=== PATIENT | female | born 1965 | race Caucasian/White ===

== ENCOUNTER 2019-03-28 21:16 | Emergency (ER) | payer MEDICAID ==
[~2019-03-28] VITALS: Ht 167.6 cm; Wt 83.2 kg
[~2019-03-28 21:16] MED LIST: LITH300T16 PO; RES15C PO; SIMV5TAB58 PO; SYN0.025T PO; TOPI25CA6 PO
[2019-03-28 21:18] VITALS: BP 139/82
== END 2019-03-28 22:15 | disposition home or self-care (01) ==
LOC: ER 21:16
DX: S39.011A Strain of muscle, fascia and tendon of abdomen, initial encounter (principal); E78.00 Pure hypercholesterolemia, unspecified; Z90.710 Acquired absence of both cervix and uterus; Z79.899 Other long term (current) drug therapy; X58.XXXA Exposure to other specified factors, initial encounter; Y93.89 Activity, other specified; Y92.89 Other specified places as the place of occurrence of the external cause; Y99.9 Unspecified external cause status
CPT/HCPCS: 99281

== ENCOUNTER 2019-10-08 09:56 | Day surgery (SDC) | payer MEDICAID ==
[2019-10-03 16:14] LABS: BASOPHILS # (AUTO) 0.1 X10'3 (0-0.2); BASOPHILS % (AUTO) 0.7 % (0-1); EOSINOPHILS # (AUTO) 0.1 X10'3 (0-0.9); EOSINOPHILS % (AUTO) 1.1 % (0-6); LYMPHOCYTES % (AUTO) 24.4 % (21-51); MEAN CORPUSCULAR HEMOGLOBIN 30.8 PG (27.0-31.0); MEAN CORPUSCULAR HGB CONC 34.1 g/dL (33.0-36.5); MEAN CORPUSCULAR VOLUME 90.4 FL (78-98); MEAN PLATELET VOLUME 7.1 FL (7.4-10.4); MONOCYTES # (AUTO) 0.5 X10'3 (0-0.9); MONOCYTES % (AUTO) 5.9 % (2-12); NEUTROPHILS # (AUTO) 5.6 X10'3 (1.8-7.7); NEUTROPHILS % (AUTO) 67.9 % (42-75); PRE OP HEMATOCRIT 40.9 % (35.0-45.0); PRE OP HEMOGLOBIN 13.9 g/dL (12.0-16.0); PRE OP PLATELET COUNT 230 X10'3 (140-440); RED BLOOD COUNT 4.52 X10'6 (4.20-5.60); RED CELL DISTRIBUTION WIDTH 12.6 % (11.5-14.5)
[2019-10-03 16:31] LABS: ALBUMIN 4.1 G/DL (3.4-5.0); ALBUMIN/GLOBULIN RATIO 1.2 (1.1-1.5); ALKALINE PHOSPHATASE 108 IU/L (46-116); BLOOD UREA NITROGEN 12 MG/DL (7-18); BUN/CREATININE RATIO 10.8 (6.6-38.0); CALCIUM 9.7 MG/DL (8.5-10.1); CHLORIDE 108 MMOL/L (99-107); CREATININE 1.11 MG/DL (0.40-0.90); PRE OP ALT 31 U/L (30-65); PRE OP ANION GAP 7 (8-16); PRE OP AST 18 U/L (10-37); PRE OP BILIRUB, TOTAL 0.3 MG/DL (0.0-1.0); PRE OP GLUCOSE 102 MG/DL (70-104); PRE OP POTASSIUM 3.6 MMOL/L (3.4-5.1); PRE OP SODIUM 142 MMOL/L (135-145); TOTAL PROTEIN 7.6 G/DL (6.4-8.2); eGFR 51 ML/MIN
[2019-10-08] VITALS (11 sets, daily range): BP systolic 111–134; BP diastolic 54–80
[~2019-10-08] VITALS: Ht 167.6 cm; Wt 89.6 kg
[~2019-10-08 09:56] MED LIST changes: +CHOL10006 PO; +CYAN250014 PO; +ESTR1TAB19 PO; +IBUP-1985 PO; +LAMO100T PO; -LITH300T16 PO; +MAGN400T29 PO; +UBID50TA3 PO; +cefazolin/dext.iso 2gm/100ml 100 ML IV ONE; +famotidine 20mg tablet PO ONE; +ringers solution, lacted 1,000 ML IV SCH
[2019-10-08] MEDS ORDERED: ringers solution, lacted 1,000 ML IV SCH (11:17)
[2019-10-08] MEDS ORDERED: labetalol 20mg/4ml (5mg/ml) syringe IV PRN (11:20)
[2019-10-08] MEDS ORDERED: hydrALAZINE 20mg/ml inj. IV PRN (11:20)
[2019-10-08] MEDS ORDERED: morphine 2 MG/ML inj. syringe IV PRN (11:20)
[2019-10-08] MEDS ORDERED: morphine 4 MG/ML inj SYRINge IV PRN (11:20)
[2019-10-08] MEDS ORDERED: fentaNYL/PF 50MCG/1 ML 2ML syringe IV PRN ×2 (11:20)
[2019-10-08] MEDS ORDERED: ondansetron/PF 4mg/2ml inj IV PRN (11:20)
[2019-10-08] MEDS ORDERED: BUPIVAcaine/PF 2.5 mg/ml (0.25%) 30ml vial ONE (12:57)
[2019-10-08] MEDS ORDERED: LIDOcaine 1% 30ml preserv. free vial ONE (12:57)
[2019-10-08] MEDS ORDERED: midazolam 2 mg/2 ml injection ONE (13:16)
[2019-10-08] MEDS ORDERED: fentaNYL/PF 50MCG/1 ML 2ML syringe ONE (13:16)
[2019-10-08] MEDS ORDERED: propofol inj 20 ML IV ONE (13:23)
[2019-10-08] MEDS ORDERED: LIDOcaine 2% (20mg/ml) 5ml vial ONE (13:23)
[2019-10-08] MEDS ORDERED: rocuronium 10mg/ml inj IV ONE (13:25)
[2019-10-08] MEDS ORDERED: ondansetron/PF 4mg/2ml inj ONE (13:25)
[2019-10-08] MEDS ORDERED: dexamethasone sod phosphate 4mg/ml inj. ONE (13:25)
[2019-10-08] MEDS ORDERED: glycopyrrolate 0.2mg/ml inj ONE (13:27)
[2019-10-08] MEDS ORDERED: neostigmine methylsulfate 1 MG/ML 10ml vial ONE (13:27)
--- NOTE | 2019-10-08 14:37 | NUR ---
Received from OR via [facility] , accompanied by Anesthesiologist DR BOND and report given by Anesthesiolgist. PATIENT WAKING UP, DENIES PAIN, V/S WNL, NEUROVASCULAR CHECKS INTACT, BANDAIDS TO ABDOMEN LAP SITES WITH CDI. 20G PIV TO LEFT FA PATENT. Addendum: 10/08/19 at 1451 by Charity Iqbal RN Amended: Links added.
[2019-10-08] MEDS ORDERED: HYDROcodone/acetaminophen 5mg/325mg tablet PO PRN (14:50)
[2019-10-08] MEDS ORDERED: HYDROcodone/acetaminophen 10/325mg tab PO PRN (14:50)
--- NOTE | 2019-10-08 16:18 | NUR ---
([id number]) UP AND DRESSED. MOHINI PO FLUID AND SNACK. STATES ADEQUATE PAIN RELIEF. DC INSTRUCTIONS REVIEW WITH ALL QUESTIONS ANSWERED. ABD BANDAIDS CDI. ABD SOFT/NONDISTENDED. IV DC'D WITH CANNULA INTACT AND DSG APPLIED. PT STATES TAKING TRANSPORT VAN HOME WITH "[facility]" TO RECEIVE HER AT HOME UPON ARRIVAL. DC CRITERIA MEET. AWAITING INDUSTRIAL HYGENIST. ([id number]) DC VIA WC WITH ALL PERSONAL BELONGINGS TO AWAITING LEGAL SPECIALIST. Addendum: 10/08/19 at 1631 by Charity Iqbal RN Amended: Links added.
== END 2019-10-08 16:18 | disposition home or self-care (01) ==
LOC: PAS 09:56
PROVIDERS: ATTEND Surgery
DX: K40.90 Unilateral inguinal hernia, without obstruction or gangrene, not specified as recurrent (principal); N73.6 Female pelvic peritoneal adhesions (postinfective); E03.9 Hypothyroidism, unspecified; F31.9 Bipolar disorder, unspecified; J44.9 Chronic obstructive pulmonary disease, unspecified; E78.2 Mixed hyperlipidemia; G47.00 Insomnia, unspecified; E66.9 Obesity, unspecified; Z68.31 Body mass index [BMI] 31.0-31.9, adult; Z79.899 Other long term (current) drug therapy; Z87.891 Personal history of nicotine dependence; Z90.710 Acquired absence of both cervix and uterus; Z98.890 Other specified postprocedural states; Z82.49 Family history of ischemic heart disease and other diseases of the circulatory system
CPT/HCPCS: 36415; 49650; 80053; 82948; 85025; 93005; C1781; J1100; J2001; J2250; J2270; J2405; J2704; J2710; J3010; J3490; S2900; A4215; A4618; J7120